=== PATIENT | male | born 2000 | race Caucasian/White ===

== ENCOUNTER 2022-05-07 08:49 | Emergency (ER) | payer SELFPAY ==
[2022-05-07 10:38] LABS: #Eosinphils 0.1 10x3/uL (0.0-0.5); #Monocytes 0.5 10x3/uL (0.0-1.1); #Neutrophils 7.8 10x3/uL (1.5-8.4); %Basophils 0.3 % (0.0-2.0); %Eosinophils 1.3 % (0.0-6.0); %Lymphocytes 9.8 % (18.0-47.0); %Monocytes 5.7 % (0.0-10.0); %Neutrophils 82.6 % (40.0-75.0); Hemoglobin 15.9 g/dL (13.5-17.5); Mean Corpuscular HGB CONC 36.2 g/dL (32.0-36.0); Mean Corpuscular Hemoglobin 30.3 pg (27.0-33.0); Mean Corpuscular Volume 83.8 fl (81.2-95.1); Mean Platelet Volume 9.7 fl (7.4-10.4); Platelet Count 197 10x3/uL (150-450); RBC Distribution Width 12.1 % (11.5-14.5); Red Blood Cell (RBC) Count 5.24 10x6/uL (4.32-5.72); White Blood Cell (WBC) Count 9.5 10x3/uL (3.5-10.5)
[2022-05-07 10:41] LABS: ALT (SGPT) 13 U/L (8-55); AST (SGOT) 15 U/L (5-34); Albumin 4.6 g/dL (3.5-5.0); Alkaline Phosphatase 73 U/L (50-130); Anion Gap 14 mmol/L (10-20); BUN (Urea Nitrogen) 14 mg/dL (8.9-20.6); Bilirubin, Total 1.3 mg/dL (0.2-1.2); Calc. Creatinine Clearance 0 mL/min (70-130); Calcium 9.7 mg/dL (7.8-10.44); Carbon Dioxide 25 mmol/L (22-29); Chloride 101 mmol/L (98-107); Estimated GFR 89; Globulin 2.8 g/dL (2.4-3.5); Glucose 103 mg/dL (70-105); Lipase 9 U/L (8-78); Potassium 3.7 mmol/L (3.5-5.1); Protein, Total 7.4 g/dL (6.0-8.3); Sodium 136 mmol/L (136-145)
[2022-05-07 11:47] LABS: SARS-CoV-2 NAA Rapid Test Not Detected (NotDetected)
== END 2022-05-07 12:09 | disposition home or self-care (01) ==
LOC: CSHERS 08:49
DX: B34.9 Viral infection, unspecified (principal); R55 Syncope and collapse; Z20.822 Contact with and (suspected) exposure to COVID-19
CPT/HCPCS: 80053; 83605; 83690; 85025; 96360